=== PATIENT | female | born 1995 ===

== ENCOUNTER 2021-09-14 21:43 | Emergency (ER) | payer OTHER ==
[~2021-09-14] VITALS: Ht 165.1 cm; Wt 59.1 kg
[2021-09-14 21:45] VITALS: BP 124/71
== END 2021-09-14 22:44 | disposition left against medical advice (07) ==
LOC: EMS 21:44
DX: O46.90 Antepartum hemorrhage, unspecified, unspecified trimester (principal); Z3A.00 Weeks of gestation of pregnancy not specified; Z53.21 Procedure and treatment not carried out due to patient leaving prior to being seen by health care provider